=== PATIENT | female | born 1970 | race Caucasian/White ===

== ENCOUNTER 2016-10-12 13:42 | Outpatient (CLI) | payer OTHER ==
--- NOTE | 2016-10-12 15:39 | DIAGNOSTIC IMAGING REPORT ---
PROCEDURE: CT LOWER EXT W/O CONTRAST-LEFT INDICATION: Fracture distal left fibula, follow-up TECHNIQUE: Axial scans with coronal and sagittal re-formations. COMPARISON: Left ankle X-ray 07/22/2016 FINDINGS: Oblique fracture of the distal fibula with minimal displacement and sclerotic margins. No evidence of callus formation. No other osseous abnormalities. Mild soft tissue swelling laterally. IMPRESSION: 1. 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
== END 2016-10-12 23:00 ==
LOC: CT SRH 13:42
DX: S82.435A Nondisplaced oblique fracture of shaft of left fibula, initial encounter for closed fracture (principal)